=== PATIENT | male | born 1945 ===

== ENCOUNTER 2019-06-19 13:17 | Inpatient (IN) | payer OTHER, SELFPAY ==
[~2019-06-19] VITALS: Ht 175.3 cm; Wt 65.2 kg
[2019-06-19 14:23] LABS: BASOPHIL % 0.2 % (0-2); PLATELET COUNT 246 x10^3mcL (130-400); RED CELL DISTRIBUTION WIDTH 13.3 % (11.5-14.5)
[2019-06-19] MEDS ORDERED: PREDNISOLONE ACE5 M1 OS (14:30)
[2019-06-19] MEDS ORDERED: ZOSC TOP (14:31)
[2019-06-19] MEDS ORDERED: TESSALON PERLE100 MG PO (14:31)
[2019-06-19] MEDS ORDERED: ATORVASTATIN CA40 M1 PO (14:31)
[2019-06-19] MEDS ORDERED: ADULT LOW DOSE81 MG PO (14:31)
[2019-06-19] MEDS ORDERED: QUALITY CHOICE650 M1 PO (14:32)
[2019-06-19 14:36] LABS: CALCIUM 8.5 mg/dL (8.5-10.1); CARBON DIOXIDE 25.2 mmol/L (21-32); CHLORIDE SERUM 102 mmol/L (98-107); CREATININE SERUM 1.4 mg/dL (0.7-1.3); GLUCOSE SERUM 123 mg/dL (74-106); POTASSIUM SERUM 4.3 mmol/L (3.5-5.1); SODIUM SERUM 137 mmol/L (136-145)
[2019-06-19 14:45] LABS: ALKALINE PHOSPHATASE 57 U/L (46-116); ALT/SGPT 50 U/L (16-63); AST/SGOT 72 U/L (15-37); BILIRUBIN TOTAL 0.4 mg/dL (0.20-1.00); LACTIC DEHYDROGENASE (LDH) 507 U/L (100-190); TOTAL PROTEIN, SERUM 6.8 g/dL (6.4-8.2)
[2019-06-19 14:46] LABS: ALBUMIN 2.8 g/dL (3.4-5.0); C REACTIVE PROTEIN 17.9 mg/dL (<=0.9)
[2019-06-19 15:52] VITALS: BP 111/65
[2019-06-19 15:59] VITALS: BP 115/63
[2019-06-19 18:40] LABS: UA SPECIFIC GRAVITY 1.025 (1.005-1.035); microscopic required? YES; urine erythrocyte 1+ (NEGATIVE)
[2019-06-19 21:05] VITALS: BP 116/62
[2019-06-20 06:07] VITALS: BP 103/62
[2019-06-20 07:20] LABS: BASOPHIL % 0.1 % (0-2); PLATELET COUNT 269 x10^3mcL (130-400); RED CELL DISTRIBUTION WIDTH 13.7 % (11.5-14.5)
[2019-06-20 07:55] LABS: CALCIUM 8.4 mg/dL (8.5-10.1); CARBON DIOXIDE 26.4 mmol/L (21-32); CHLORIDE SERUM 105 mmol/L (98-107); CREATININE SERUM 1.2 mg/dL (0.7-1.3); GLUCOSE SERUM 99 mg/dL (74-106); POTASSIUM SERUM 4.4 mmol/L (3.5-5.1); SODIUM SERUM 139 mmol/L (136-145)
[2019-06-20 08:30] VITALS: BP 116/73
[2019-06-20 12:25] VITALS: BP 123/67
[2019-06-20 16:43] VITALS: BP 126/72
[2019-06-20 20:50] VITALS: BP 107/62
[2019-06-21 01:45] VITALS: BP 140/53
[2019-06-21 04:31] VITALS: BP 116/55
[2019-06-21 07:45] LABS: PLATELET COUNT 344 x10^3mcL (130-400); RED CELL DISTRIBUTION WIDTH 13.8 % (11.5-14.5)
[2019-06-21 07:52] LABS: CALCIUM 8.6 mg/dL (8.5-10.1); CARBON DIOXIDE 28.5 mmol/L (21-32); CHLORIDE SERUM 105 mmol/L (98-107); CREATININE SERUM 1.3 mg/dL (0.7-1.3); GLUCOSE SERUM 116 mg/dL (74-106); POTASSIUM SERUM 4.9 mmol/L (3.5-5.1); SODIUM SERUM 138 mmol/L (136-145)
[2019-06-21 07:57] LABS: BASOPHIL % 0 % (0-2)
[2019-06-21 08:50] VITALS: BP 116/57
[2019-06-21 17:30] VITALS: BP 132/55
[2019-06-21 20:00] VITALS: BP 102/63
[2019-06-22] VITALS (7 sets, daily range): BP systolic 108–152; BP diastolic 54–99
[2019-06-22 06:25] LABS: PLATELET COUNT 391 x10^3mcL (130-400); RED CELL DISTRIBUTION WIDTH 13.6 % (11.5-14.5)
[2019-06-22 06:46] LABS: CALCIUM 8.7 mg/dL (8.5-10.1); CARBON DIOXIDE 26.5 mmol/L (21-32); CHLORIDE SERUM 107 mmol/L (98-107); CREATININE SERUM 1.3 mg/dL (0.7-1.3); GLUCOSE SERUM 111 mg/dL (74-106); POTASSIUM SERUM 4.8 mmol/L (3.5-5.1); SODIUM SERUM 144 mmol/L (136-145)
[2019-06-22 07:22] LABS: BASOPHIL % 0 % (0-2)
[2019-06-23] VITALS (8 sets, daily range): BP systolic 91–141; BP diastolic 41–80
[2019-06-23 06:20] LABS: BASOPHIL % 0.1 % (0-2); RED CELL DISTRIBUTION WIDTH 13.8 % (11.5-14.5)
[2019-06-23 06:21] LABS: PLATELET COUNT 455 x10^3mcL (130-400)
[2019-06-23 06:40] LABS: CALCIUM 8.3 mg/dL (8.5-10.1); CARBON DIOXIDE 26.7 mmol/L (21-32); CHLORIDE SERUM 107 mmol/L (98-107); CREATININE SERUM 1.1 mg/dL (0.7-1.3); GLUCOSE SERUM 106 mg/dL (74-106); POTASSIUM SERUM 4.7 mmol/L (3.5-5.1); SODIUM SERUM 144 mmol/L (136-145)
[2019-06-24] VITALS: BP 117/66
[2019-06-24 02:00] VITALS: BP 117/66
[2019-06-24 05:02] LABS: RED CELL DISTRIBUTION WIDTH 14.2 % (11.5-14.5)
[2019-06-24 05:04] LABS: BASOPHIL % 0 % (0-2); PLATELET COUNT 456 x10^3mcL (130-400)
[2019-06-24 05:11] LABS: CALCIUM 8.8 mg/dL (8.5-10.1); CARBON DIOXIDE 24.5 mmol/L (21-32); CHLORIDE SERUM 106 mmol/L (98-107); CREATININE SERUM 1.2 mg/dL (0.7-1.3); GLUCOSE SERUM 232 mg/dL (74-106); SODIUM SERUM 139 mmol/L (136-145)
[2019-06-24 08:00] VITALS: BP 114/71
[2019-06-24 19:30] VITALS: BP 112/67
[2019-06-24 23:10] VITALS: BP 119/59
[2019-06-25 03:20] VITALS: BP 122/57
[2019-06-25 04:27] LABS: RED CELL DISTRIBUTION WIDTH 14.3 % (11.5-14.5)
[2019-06-25 04:28] LABS: BASOPHIL % 0 % (0-2); PLATELET COUNT 447 x10^3mcL (130-400)
[2019-06-25 04:51] LABS: CALCIUM 8.7 mg/dL (8.5-10.1); CARBON DIOXIDE 27.7 mmol/L (21-32); CHLORIDE SERUM 106 mmol/L (98-107); CREATININE SERUM 1.3 mg/dL (0.7-1.3); GLUCOSE SERUM 165 mg/dL (74-106); POTASSIUM SERUM 4.3 mmol/L (3.5-5.1); SODIUM SERUM 140 mmol/L (136-145)
[2019-06-25 08:00] VITALS: BP 127/82
[2019-06-25 19:45] VITALS: BP 135/62
[2019-06-25 23:45] VITALS: BP 123/67
[2019-06-26 03:40] VITALS: BP 124/66
[2019-06-26 07:10] LABS: RED CELL DISTRIBUTION WIDTH 13.9 % (11.5-14.5)
[2019-06-26 07:29] LABS: CALCIUM 8.7 mg/dL (8.5-10.1); CARBON DIOXIDE 29.2 mmol/L (21-32); CHLORIDE SERUM 107 mmol/L (98-107); CREATININE SERUM 1.1 mg/dL (0.7-1.3); GLUCOSE SERUM 127 mg/dL (74-106); POTASSIUM SERUM 4.5 mmol/L (3.5-5.1); SODIUM SERUM 143 mmol/L (136-145)
[2019-06-26 07:36] LABS: BASOPHIL % 0 % (0-2); PLATELET COUNT 431 x10^3mcL (130-400)
[2019-06-26 08:00] VITALS: BP 123/58
[2019-06-26 12:00] VITALS: BP 122/63
[2019-06-26 17:28] VITALS: BP 122/63
[2019-06-26 20:00] VITALS: BP 111/83
[2019-06-27] VITALS (7 sets, daily range): BP systolic 119–144; BP diastolic 62–76
[2019-06-27 05:38] LABS: BASOPHIL % 0.2 % (0-2); RED CELL DISTRIBUTION WIDTH 13.8 % (11.5-14.5)
[2019-06-27 05:39] LABS: PLATELET COUNT 410 x10^3mcL (130-400)
[2019-06-27 05:49] LABS: CALCIUM 8.5 mg/dL (8.5-10.1); CARBON DIOXIDE 25.5 mmol/L (21-32); CHLORIDE SERUM 108 mmol/L (98-107); GLUCOSE SERUM 126 mg/dL (74-106); SODIUM SERUM 142 mmol/L (136-145)
[2019-06-28 05:15] LABS: BASOPHIL % 0.1 % (0-2)
[2019-06-28 05:17] LABS: CALCIUM 8.3 mg/dL (8.5-10.1); CARBON DIOXIDE 27.5 mmol/L (21-32); CHLORIDE SERUM 106 mmol/L (98-107); GLUCOSE SERUM 152 mg/dL (74-106); POTASSIUM SERUM 4.1 mmol/L (3.5-5.1); SODIUM SERUM 140 mmol/L (136-145)
[2019-06-28 05:36] VITALS: BP 122/58
[2019-06-28 05:55] LABS: PLATELET COUNT 403 x10^3mcL (130-400)
[2019-06-28 08:00] VITALS: BP 111/73
[2019-06-28 12:00] VITALS: BP 138/55
[2019-06-28 15:25] VITALS: BP 120/69
[2019-06-28 16:00] VITALS: BP 120/53
[2019-06-28 20:00] VITALS: BP 119/50
[2019-06-29] VITALS: BP 125/64
[2019-06-29 05:00] LABS: BASOPHIL % 0.1 % (0-2); RED CELL DISTRIBUTION WIDTH 12.9 % (11.5-14.5)
[2019-06-29 05:06] LABS: CALCIUM 8.6 mg/dL (8.5-10.1); CARBON DIOXIDE 25.6 mmol/L (21-32); CHLORIDE SERUM 107 mmol/L (98-107); GLUCOSE SERUM 149 mg/dL (74-106); POTASSIUM SERUM 4.1 mmol/L (3.5-5.1); SODIUM SERUM 140 mmol/L (136-145)
[2019-06-29 05:08] LABS: PLATELET COUNT 433 x10^3mcL (130-400)
[2019-06-29 08:00] VITALS: BP 143/65
[2019-06-29 10:00] VITALS: BP 143/53
[2019-06-29 12:55] VITALS: BP 128/68
[2019-06-29 18:30] VITALS: BP 138/65
[2019-06-29 20:20] VITALS: BP 124/67
[2019-06-30 05:29] VITALS: BP 127/73
[2019-06-30 07:19] LABS: BASOPHIL % 0.1 % (0-2); PLATELET COUNT 369 x10^3mcL (130-400); RED CELL DISTRIBUTION WIDTH 14.2 % (11.5-14.5)
[2019-06-30 07:26] LABS: CALCIUM 8.9 mg/dL (8.5-10.1); CARBON DIOXIDE 26.5 mmol/L (21-32); CHLORIDE SERUM 104 mmol/L (98-107); CREATININE SERUM 0.9 mg/dL (0.7-1.3); GLUCOSE SERUM 131 mg/dL (74-106); POTASSIUM SERUM 4.3 mmol/L (3.5-5.1); SODIUM SERUM 139 mmol/L (136-145)
[2019-06-30 20:45] VITALS: BP 135/86
[2019-07-01 05:55] VITALS: BP 126/89
[2019-07-01 06:44] LABS: BASOPHIL % 0.3 % (0-2); PLATELET COUNT 371 x10^3mcL (130-400); RED CELL DISTRIBUTION WIDTH 13.8 % (11.5-14.5)
[2019-07-01 08:09] LABS: CALCIUM 9.2 mg/dL (8.5-10.1); CARBON DIOXIDE 27.7 mmol/L (21-32); CHLORIDE SERUM 103 mmol/L (98-107); CREATININE SERUM 0.9 mg/dL (0.7-1.3); GLUCOSE SERUM 127 mg/dL (74-106); POTASSIUM SERUM 4.4 mmol/L (3.5-5.1); SODIUM SERUM 139 mmol/L (136-145)
[2019-07-01 08:15] VITALS: BP 125/70
[2019-07-01 12:00] VITALS: BP 112/72
[2019-07-01 17:30] VITALS: BP 114/78
[2019-07-01 21:30] VITALS: BP 121/76
[2019-07-02] VITALS (7 sets, daily range): BP systolic 118–152; BP diastolic 69–80
[2019-07-02 07:20] LABS: PLATELET COUNT 370 x10^3mcL (130-400)
[2019-07-02 07:23] LABS: CALCIUM 9.9 mg/dL (8.5-10.1); CARBON DIOXIDE 29.6 mmol/L (21-32); CHLORIDE SERUM 104 mmol/L (98-107); GLUCOSE SERUM 160 mg/dL (74-106); POTASSIUM SERUM 4.7 mmol/L (3.5-5.1); SODIUM SERUM 139 mmol/L (136-145)
[2019-07-02 07:28] LABS: BASOPHIL % 0 % (0-2)
[2019-07-03 06:43] VITALS: BP 132/71
[2019-07-03 07:05] LABS: BASOPHIL % 0.1 % (0-2); PLATELET COUNT 355 x10^3mcL (130-400); RED CELL DISTRIBUTION WIDTH 14.3 % (11.5-14.5)
[2019-07-03 07:31] LABS: CALCIUM 9.3 mg/dL (8.5-10.1); CARBON DIOXIDE 27.4 mmol/L (21-32); CHLORIDE SERUM 104 mmol/L (98-107); CREATININE SERUM 1.2 mg/dL (0.7-1.3); GLUCOSE SERUM 160 mg/dL (74-106); POTASSIUM SERUM 4.8 mmol/L (3.5-5.1); SODIUM SERUM 138 mmol/L (136-145)
[2019-07-03 08:10] VITALS: BP 143/86
[2019-07-03 12:44] VITALS: BP 141/94
[2019-07-03 16:07] LABS: CALCIUM 10.3 mg/dL (8.5-10.1); CARBON DIOXIDE 29.9 mmol/L (21-32); CHLORIDE SERUM 101 mmol/L (98-107); CREATININE SERUM 1.3 mg/dL (0.7-1.3); GLUCOSE SERUM 173 mg/dL (74-106); SODIUM SERUM 140 mmol/L (136-145)
[2019-07-03 16:08] LABS: POTASSIUM SERUM 4.6 mmol/L (3.5-5.1)
[2019-07-03 18:05] VITALS: BP 147/99
[2019-07-03 21:25] VITALS: BP 123/68
[2019-07-04 06:50] VITALS: BP 137/77
[2019-07-04 07:43] LABS: PLATELET COUNT 359 x10^3mcL (130-400)
[2019-07-04 07:55] LABS: ALKALINE PHOSPHATASE 118 U/L (46-116); ALT/SGPT 86 U/L (16-63); AST/SGOT 36 U/L (15-37); BILIRUBIN TOTAL 0.3 mg/dL (0.20-1.00); CALCIUM 9.3 mg/dL (8.5-10.1); CARBON DIOXIDE 27.7 mmol/L (21-32); CHLORIDE SERUM 100 mmol/L (98-107); CREATININE SERUM 2.1 mg/dL (0.7-1.3); GLUCOSE SERUM 223 mg/dL (74-106); PHOSPHOROUS 5.6 mg/dL (2.5-4.9); SODIUM SERUM 137 mmol/L (136-145); TOTAL PROTEIN, SERUM 7.2 g/dL (6.4-8.2)
[2019-07-04 07:56] LABS: ALBUMIN 2.6 g/dL (3.4-5.0)
[2019-07-04 07:59] LABS: CARBON DIOXIDE 27.2 mmol/L (21-32); CHLORIDE SERUM 102 mmol/L (98-107); CREATININE SERUM 2.1 mg/dL (0.7-1.3); GLUCOSE SERUM 225 mg/dL (74-106); POTASSIUM SERUM 5.3 mmol/L (3.5-5.1); SODIUM SERUM 140 mmol/L (136-145)
[2019-07-04 08:17] VITALS: BP 140/78
[2019-07-04 08:30] LABS: BASOPHIL % 0 % (0-2); RED CELL DISTRIBUTION WIDTH 14.6 % (11.5-14.5)
[2019-07-04 13:56] VITALS: BP 126/69
[2019-07-04 18:00] VITALS: BP 132/66
[2019-07-04 19:45] VITALS: BP 143/82
[2019-07-04 23:05] VITALS: BP 133/77
[2019-07-05 03:05] VITALS: BP 140/77
[2019-07-05 06:04] LABS: BASOPHIL % 0.1 % (0-2); PLATELET COUNT 302 x10^3mcL (130-400)
[2019-07-05 06:16] LABS: RED CELL DISTRIBUTION WIDTH 14.6 % (11.5-14.5)
[2019-07-05 06:22] LABS: ALKALINE PHOSPHATASE 92 U/L (46-116); ALT/SGPT 58 U/L (16-63); AST/SGOT 27 U/L (15-37); BILIRUBIN TOTAL 0.3 mg/dL (0.20-1.00); CALCIUM 8.9 mg/dL (8.5-10.1); CARBON DIOXIDE 29.7 mmol/L (21-32); CHLORIDE SERUM 105 mmol/L (98-107); CREATININE SERUM 1.6 mg/dL (0.7-1.3); GLUCOSE SERUM 169 mg/dL (74-106); PHOSPHOROUS 3.6 mg/dL (2.5-4.9); POTASSIUM SERUM 4.4 mmol/L (3.5-5.1); SODIUM SERUM 140 mmol/L (136-145); TOTAL PROTEIN, SERUM 7.1 g/dL (6.4-8.2)
[2019-07-05 23:25] VITALS: BP 120/55
[2019-07-06] VITALS (9 sets, daily range): BP systolic 110–141; BP diastolic 48–64
[2019-07-06 05:30] LABS: PLATELET COUNT 237 x10^3mcL (130-400)
[2019-07-06 05:33] LABS: RED CELL DISTRIBUTION WIDTH 14.8 % (11.5-14.5)
[2019-07-06 05:47] LABS: ALKALINE PHOSPHATASE 75 U/L (46-116); ALT/SGPT 43 U/L (16-63); AST/SGOT 47 U/L (15-37); BILIRUBIN TOTAL 0.4 mg/dL (0.20-1.00); CALCIUM 8.5 mg/dL (8.5-10.1); CARBON DIOXIDE 25.5 mmol/L (21-32); CHLORIDE SERUM 108 mmol/L (98-107); CREATININE SERUM 1.6 mg/dL (0.7-1.3); GLUCOSE SERUM 172 mg/dL (74-106); PHOSPHOROUS 3.2 mg/dL (2.5-4.9); POTASSIUM SERUM 4.4 mmol/L (3.5-5.1); SODIUM SERUM 142 mmol/L (136-145); TOTAL PROTEIN, SERUM 6.4 g/dL (6.4-8.2)
[2019-07-06 05:52] LABS: ALBUMIN 2.6 g/dL (3.4-5.0)
[2019-07-06 08:12] LABS: BAND NEUTROPHIL 18 % (0-10); BASOPHIL 0 % (0-2); MONOCYTE 6 % (0-7); SEGMENTED NEUTROPHILS 69 % (37-75)
[2019-07-06 08:13] LABS: rbc morphology (normal/abnorm) ABNORMAL (NORMAL)
[2019-07-06 08:14] LABS: PLATELET MORPHOLOGY PLATELETS NORMAL
[2019-07-07 03:09] VITALS: BP 129/53
[2019-07-07 05:48] LABS: CALCIUM 9.1 mg/dL (8.5-10.1); CARBON DIOXIDE 28.6 mmol/L (21-32); CHLORIDE SERUM 111 mmol/L (98-107); CREATININE SERUM 1.3 mg/dL (0.7-1.3); GLUCOSE SERUM 157 mg/dL (74-106); POTASSIUM SERUM 4.1 mmol/L (3.5-5.1); SODIUM SERUM 146 mmol/L (136-145)
[2019-07-07 06:12] LABS: BASOPHIL % 0.3 % (0-2); PLATELET COUNT 243 x10^3mcL (130-400)
[2019-07-07 08:15] VITALS: BP 140/74
[2019-07-07 10:38] VITALS: Ht 175.3 cm; Wt 65.2 kg
[2019-07-07 12:00] VITALS: BP 138/57
[2019-07-07 16:45] VITALS: BP 128/72
[2019-07-07 19:20] VITALS: BP 116/72
[2019-07-07 23:10] VITALS: BP 122/77
[2019-07-08 03:32] VITALS: BP 126/67
[2019-07-08 05:22] LABS: ALKALINE PHOSPHATASE 96 U/L (46-116); ALT/SGPT 81 U/L (16-63); AST/SGOT 89 U/L (15-37); BILIRUBIN TOTAL 0.3 mg/dL (0.20-1.00); CALCIUM 8.3 mg/dL (8.5-10.1); CARBON DIOXIDE 25.1 mmol/L (21-32); CHLORIDE SERUM 106 mmol/L (98-107); CREATININE SERUM 1.3 mg/dL (0.7-1.3); GLUCOSE SERUM 371 mg/dL (74-106); PHOSPHOROUS 2.4 mg/dL (2.5-4.9); POTASSIUM SERUM 3.7 mmol/L (3.5-5.1); SODIUM SERUM 141 mmol/L (136-145); TOTAL PROTEIN, SERUM 6.3 g/dL (6.4-8.2)
[2019-07-08 05:31] LABS: ALBUMIN 1.8 g/dL (3.4-5.0)
[2019-07-08 08:00] VITALS: BP 114/61
[2019-07-08 12:00] VITALS: BP 145/56
[2019-07-08 16:00] VITALS: BP 154/88
[2019-07-08 19:30] VITALS: BP 135/73
[2019-07-08 23:05] VITALS: BP 120/75
[2019-07-09 03:10] VITALS: BP 124/68
[2019-07-09 05:42] LABS: BASOPHIL % 0.1 % (0-2); PLATELET COUNT 229 x10^3mcL (130-400)
[2019-07-09 05:50] LABS: RED CELL DISTRIBUTION WIDTH 15.9 % (11.5-14.5)
[2019-07-09 05:51] LABS: CALCIUM 8.2 mg/dL (8.5-10.1); CARBON DIOXIDE 24.3 mmol/L (21-32); CHLORIDE SERUM 109 mmol/L (98-107); CREATININE SERUM 1.6 mg/dL (0.7-1.3); GLUCOSE SERUM 205 mg/dL (74-106); POTASSIUM SERUM 3.9 mmol/L (3.5-5.1); SODIUM SERUM 144 mmol/L (136-145)
[2019-07-09 08:00] VITALS: BP 121/52
[2019-07-09 12:25] VITALS: BP 134/65
[2019-07-09 16:01] VITALS: BP 161/70
[2019-07-09 19:30] VITALS: BP 142/72
[2019-07-09 23:30] VITALS: BP 148/88
[2019-07-10 03:51] VITALS: BP 116/62
[2019-07-10 05:49] LABS: ALKALINE PHOSPHATASE 87 U/L (46-116); ALT/SGPT 158 U/L (16-63); AST/SGOT 187 U/L (15-37); BILIRUBIN TOTAL 0.37 mg/dL (0.20-1.00); CALCIUM 8.1 mg/dL (8.5-10.1); CARBON DIOXIDE 24.8 mmol/L (21-32); CHLORIDE SERUM 111 mmol/L (98-107); CREATININE SERUM 1.6 mg/dL (0.7-1.3); GLUCOSE SERUM 338 mg/dL (74-106); POTASSIUM SERUM 3.2 mmol/L (3.5-5.1); SODIUM SERUM 146 mmol/L (136-145)
[2019-07-10 05:55] LABS: ALBUMIN 1.5 g/dL (3.4-5.0); TOTAL PROTEIN, SERUM 5.7 g/dL (6.4-8.2)
[2019-07-10 05:59] LABS: BASOPHIL % 0 % (0-2); PLATELET COUNT 181 x10^3mcL (130-400); RED CELL DISTRIBUTION WIDTH 16.6 % (11.5-14.5)
[2019-07-10 07:25] VITALS: BP 120/75
[2019-07-10 12:30] VITALS: BP 143/71
[2019-07-10 15:00] VITALS: BP 14/74
[2019-07-10 19:30] VITALS: BP 119/64
[2019-07-10 23:13] VITALS: BP 99/50
[2019-07-11 03:10] VITALS: BP 106/58
[2019-07-11 05:15] LABS: ALKALINE PHOSPHATASE 100 U/L (46-116); ALT/SGPT 185 U/L (16-63); AST/SGOT 208 U/L (15-37); BILIRUBIN TOTAL 0.4 mg/dL (0.20-1.00); CARBON DIOXIDE 22.5 mmol/L (21-32); CHLORIDE SERUM 113 mmol/L (98-107); CREATININE SERUM 1.8 mg/dL (0.7-1.3); GLUCOSE SERUM 341 mg/dL (74-106); PHOSPHOROUS 3.8 mg/dL (2.5-4.9); POTASSIUM SERUM 3.8 mmol/L (3.5-5.1); SODIUM SERUM 147 mmol/L (136-145)
[2019-07-11 05:19] LABS: ALBUMIN 1.6 g/dL (3.4-5.0); TOTAL PROTEIN, SERUM 5.9 g/dL (6.4-8.2)
[2019-07-11 05:34] LABS: PLATELET COUNT 172 x10^3mcL (130-400)
[2019-07-11 08:00] VITALS: BP 115/67
[2019-07-11 12:00] VITALS: BP 122/55
[2019-07-11 13:21] LABS: BAND NEUTROPHIL 6 % (0-10); BASOPHIL 0 % (0-2); MONOCYTE 1 % (0-7); PLATELET MORPHOLOGY PLATELETS DECREASED; SEGMENTED NEUTROPHILS 91 % (37-75); rbc morphology (normal/abnorm) ABNORMAL (NORMAL)
== END 2019-07-11 19:15 | disposition expired | DRG 177 ==
LOC: ED 13:17 → DU 14:32 → IC 06-21 01:29 → DU 06-29 12:54 → IC 07-04 18:37 → DU 07-11 16:16
PROVIDERS: Emergency Medicine; Internal Medicine; ADMIT Internal Medicine
DX: U07.1 COVID-19 (principal); J96.01 Acute respiratory failure with hypoxia; N17.0 Acute kidney failure with tubular necrosis; J12.89 Other viral pneumonia; E46 Unspecified protein-calorie malnutrition; E87.0 Hyperosmolality and hypernatremia; E78.5 Hyperlipidemia, unspecified; N18.9 Chronic kidney disease, unspecified; F32.9 Major depressive disorder, single episode, unspecified; E87.5 Hyperkalemia; R00.1 Bradycardia, unspecified; R33.9 Retention of urine, unspecified; Z66 Do not resuscitate; R31.0 Gross hematuria; R73.9 Hyperglycemia, unspecified; N13.9 Obstructive and reflux uropathy, unspecified; I49.9 Cardiac arrhythmia, unspecified; F29 Unspecified psychosis not due to a substance or known physiological condition; I48.0 Paroxysmal atrial fibrillation; I12.9 Hypertensive chronic kidney disease with stage 1 through stage 4 chronic kidney disease, or unspecified chronic kidney disease; D64.9 Anemia, unspecified; D72.829 Elevated white blood cell count, unspecified; Z79.899 Other long term (current) drug therapy; Z86.73 Personal history of transient ischemic attack (TIA), and cerebral infarction without residual deficits; Z79.01 Long term (current) use of anticoagulants; Z68.22 Body mass index [BMI] 22.0-22.9, adult
CPT/HCPCS: 36600; 82962; 83880; 85378; 87804; 92526-GN; 92610; A4628; G0378; J0282; J0456; J0696; J0885-EC; J1160; J1650; J2060; J2543; J2550; J3480; J3490; J3590; J7030; J7040; J7042; J7050; J7060; P9045; P9047; Q0092